=== PATIENT | male | born 1985 | race Caucasian/White ===

== ENCOUNTER 2019-12-22 16:52 | Emergency (ER) | payer OTHER ==
[~2019-12-22] VITALS: Ht 188 cm; Wt 90.7 kg
[2019-12-22] MEDS ORDERED: XANAX1 MG PO (17:53)
[2019-12-22] MEDS ORDERED: SEROQUEL 50 MG50 MG PO (17:53)
[2019-12-22 18:15] VITALS: BP 175/87
--- NOTE | 2019-12-23 14:45 | EKG ---
[place] [address] ELECTROCARDIOGRAM REPORT Name: ADRIANCHECO Villalba Room: [facility]#: [id number] Admission: 12/22/19 Attend Phys: Discharge: 12/22/19 Date of : 89 Date of Service: 12/22/191658 Report #: [id number] THIS REPORT FOR: //name// [facility] ED Test Date: 2019-12-22 Test Time: 16:59:13 Pat Name: CHECO CAMPBELL Department: Room: Gender: Table Lever Operator: : 1985 Requested By: Jaxon Ma Order Number: [id number] MD: Saul Santo Measurements Intervals [place] Rate: 84 P: 7 TX: 125 QRS: 62 QRSD: 80 T: 13 QT: 404 QTc: 478 Interpretive Statements Sinus rhythm No previous ECG available for comparison Electronically Signed On 12-23-2019 14:44:12 CDT by Saul Santo [email or web address] <ELECTRONICALLY SIGNED> By: Saul Santo MD, [facility] 12/23/19 1444 1659 1659 Saul Santo MD, FACC /EPI
== END 2019-12-22 18:40 | disposition home or self-care (01) ==
LOC: M.ERS 16:52
DX: F41.9 Anxiety disorder, unspecified (principal); Z76.0 Encounter for issue of repeat prescription

== ENCOUNTER 2020-11-26 10:30 | Emergency (ER) | payer OTHER ==
[~2020-11-26] VITALS: Ht 190.5 cm; Wt 90.7 kg
[~2020-11-26 10:30] MED LIST: SEROQUEL 50 MG50 MG PO; XANAX1 MG PO
[2020-11-26 11:24] LABS: ABSOLUTE BASOPHILS 0.1 thou/uL (0.0-0.2); ABSOLUTE MONOCYTES 0.6 thou/uL (0.0-1.2); ABSOLUTE NEUTROPHILS 9.6 thou/uL (1.6-8.1); BASOPHILS 0.8 %; EOSINOPHILS 0.1 %; HEMATOCRIT 46.7 % (42.0-52.0); LYMPHOCYTES 8.8 %; MCH 29.9 pg (26.0-34.0); MCHC 34.2 g/dL (28.0-37.0); MCV 87.5 fL (80.0-100.0); MONOCYTES 5.5 %; NUCLEATED RBCS 0 /100WBC; PLATELET COUNT* 349 thou/uL (150-400); POLYS 84.8 %; RBC 5.33 mil/uL (4.50-6.00); RDW-CV 13.4 % (10.5-14.5); WBC 11.3 thou/uL (4.0-11.0)
[2020-11-26 11:37] LABS: CREATININE 0.9 mg/dL (0.6-1.3); POTASSIUM 3.9 mmol/L (3.5-5.1)
[2020-11-26] MEDS ORDERED: VISTARIL 25 MG25 M1 PO ×2 (11:49→11:51)
[2020-11-26 12:04] VITALS: BP 124/74
== END 2020-11-26 12:05 | disposition home or self-care (01) ==
LOC: M.ERS 10:30
PROVIDERS: Nurse Practitioner
DX: F41.9 Anxiety disorder, unspecified (principal); R33.9 Retention of urine, unspecified; Z79.899 Other long term (current) drug therapy